=== PATIENT | female | born 2000 | race Hispanic/Latino ===

== ENCOUNTER 2021-01-03 02:54 | Emergency (ER) | payer OTHER ==
[~2021-01-03] VITALS: Ht 162.6 cm; Wt 101.6 kg
[2021-01-03] MEDS ORDERED: TYLENOL # 31 EA PO (03:05)
== END 2021-01-03 03:25 | disposition home or self-care (01) ==
LOC: ER 03:01
DX: S90.821A Blister (nonthermal), right foot, initial encounter (principal); T25.221A Burn of second degree of right foot, initial encounter; X19.XXXA Contact with other heat and hot substances, initial encounter; Y93.01 Activity, walking, marching and hiking; Y92.832 Beach as the place of occurrence of the external cause
CPT/HCPCS: 99282